=== PATIENT | male | born 1980 | race Caucasian/White ===

== ENCOUNTER 2018-06-17 07:29 | Day surgery (SDC) | payer OTHER ==
[2018-06-12 12:21] VITALS: BMI 25.8
[2018-06-17] MEDS ORDERED: LIDOCAINE 1%/EPI 1:100000 (20 ML MULTI DOSE VIAL) ONE (09:27)
[2018-06-17] MEDS ORDERED: BUPIVACAINE HCL/PF 0.5% (5MG/ML) 10 ML VIAL ONE (09:27)
[2018-06-17] MEDS ORDERED: TETRACAINE 0.5% OPHTH SOLN 2 ML BOTTLE ONE (09:27)
[2018-06-17] MEDS ORDERED: ERYTHROMYCIN 0.5% OPHTHALMIC OINTMENT 3.5 GM TUBE ONE (09:27)
[2018-06-17] MEDS ORDERED: POVIDONE-IODINE 5% OPHTHALMIC PREP 30 ML SOLUTION ONE (09:27)
[2018-06-17] MEDS ORDERED: DEXAMETHASONE SOD PHOSPHATE 4 MG/1 ML VIAL ONE (09:39)
[2018-06-17] MEDS ORDERED: ONDANSETRON 4 MG/2 ML VIAL ONE (09:39)
[2018-06-17] MEDS ORDERED: MIDAZOLAM HCL 2 MG/2 ML SINGLE DOSE VIAL ONE (09:40)
[2018-06-17] MEDS ORDERED: PROPOFOL 20 ML ONE ×4 (09:56→10:56)
[2018-06-17] MEDS ORDERED: SUCCINYLCHOLINE CHLORIDE 200 MG/10 ML VIAL ONE (09:56)
[2018-06-17] MEDS ORDERED: oxyCODONE HCL 5 MG TABLET PO PRN ×2 (11:41)
[2018-06-17] MEDS ORDERED: ONDANSETRON 4 MG/2 ML VIAL IVPUSH PRN (11:41)
[2018-06-17] MEDS ORDERED: LACTATED RINGERS SOLUTION 1,000 ML IV SCH (11:45)
--- NOTE | 2018-06-17 13:06 | OP ---
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 POSTOPERATIVE DIAGNOSIS: Anterior orbital lesion at the orbital rim extremely vascular. PROCEDURE: Anterior inferior orbitotomy with an excision of lesion at the oval rim and anterior orbit. SURGEON: Marko Edwards M.D. ANESTHESIA: Local sedation. COMPLICATIONS: None. ESTIMATED BLOOD LOSS: 10 to 20 mL. OPERATION REPORT: The patient was brought to the operating room and placed on the operating room table. Vital signs monitored by Anesthesia. Tetracaine was placed on both eyes. The dome of the lesion was marked out with a marking pen and then a lid crease incision was marked overlying the superior edge of the lesion. After intravenous sedation and a time-out was performed, a 50/50 mixture of 2% Xylocaine, 1:100,000 of epinephrine, and 0.5% Marcaine were injected in the lid crease and the patient was prepped and draped in the usual sterile fashion exposing both eyes. The left eye was closed and the right was closed manually. A 4-0 silk tracking suture was passed to the lateral portion of the eyelid margin and clamped with hemostats superiorly to keep an adequate stretch. An incision was made in the lid crease expanding the width of the lesion below it. Rakes and retractors were used and meticulous dissection was carried down through the orbicularis and posterior to the orbicularis and to the septum and down to the orbital rim where the dome of the lesion was identified as a darkish purplish hue. Dissection was carried out around the lesion; however, it was extremely vascular with many vessels that needed to be cauterized periodically and the lesion was eventually excised en total as it decompressed somewhat during dissection and it was excised down at the orbital rim and overlying the septum of the orbital fat inferiorly and submitted for pathologic study as well as touch prep for permanent dissection. It was presumed at this point to be a hemangioma or an AVM. Meticulous hemostasis was obtained and all visible remnants of this lesion had been removed so that we were down to the fat at the inferior anterior orbital rim overlying the orbital rim. Meticulous hemostasis was obtained. Antibiotic irrigation was used generously and the wound was closed after hemostasis with 3 interrupted 6-0 Vicryl sutures in the subcuticular plane and running 6-0 plain suture in the incision. Erythromycin ointment was placed on the sutures, traction sutures were removed, and the patient was taken to the recovery room in stable condition. MARKO EDWARDS M.D. MATTHIAS/[id number]
[2018-06-17 13:21] VITALS: BP 129/71; PULSE 69; TEMP 98
--- NOTE | 2018-06-19 15:08 | PATH ---
Surgical Pathology Report Patient Name: MYCHAL SAUCEDA [facility]. Rec. #: [id number] /Age/Gender: 1980 (Age: 38) / M Account: [id number] Location: [facility] [place] [facility] Taken: 06/17/2018 Received: 06/17/2018 Reported: 06/19/2018 Physicians: Nicolas Solomon Specimen(s) Received LESION RIGHT LOWER EYELID (FRESH) Clinical History Lesion right lower eyelid Final Diagnosis LESION RIGHT LOWER EYELID, EXCISION: CONSISTENT WITH CAVERNOUS HEMANGIOMA. SEE COMMENT. Comment: Focally thick-walled dilated blood vessels showing large endothelium lined channels with focal thrombi formation. Immunohistochemical stains CD31 and CD34 performed at [place], [place] ([id number]) and interpreted at [facility] highlight the lining endothelial cells, which are negative for D2-40 stain. 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 Electronically Signed Arsenio Andrade M.D. Gross Description Received fresh labeled "lesion right lower eyelid," are 3 lang-pink soft tissue fragments ranging from 0.4-0.6 cm in greatest dimension. The specimen is entirely submitted in one cassette. /06/17/2018 saudi06/17/2018
== END 2018-06-17 13:05 | disposition home or self-care (01) ==
LOC: FASU 07:29
PROVIDERS: ATTEND Ophthalmology
PROC: 0JB10ZX Excision of Face Subcutaneous Tissue and Fascia, Open Approach, Diagnostic (ICD-10-PCS; principal; 2018-06-17 10:14)
DX: D31.61 Benign neoplasm of unspecified site of right orbit (principal)
CPT/HCPCS: 88305-TC; 94760